=== PATIENT | female | born 1950 | race Caucasian/White ===

== ENCOUNTER 2021-11-09 14:56 | Emergency (ER) | payer MEDICARE ==
--- NOTE | 2021-11-09 15:28 | XRAY Report ---
PROCEDURE: Chest 1 View X-Ray INDICATIONS: Chest Pain TECHNIQUE: One view of the chest was acquired. COMPARISON: None FINDINGS: Surgical changes and devices: None. Lungs and pleura: No pleural effusions or pneumothorax. Lungs are clear. Mediastinum: Mediastinal contours appear normal. Heart size is normal. Bones and chest wall: No suspicious bony lesions. Overlying soft tissues appear unremarkable. IMPRESSION: No acute pulmonary process. Reviewed by: Pamela Espinoza MD on 11/09/2021 3:27 PM PDT Approved by: Pamela Espinoza MD on 11/09/2021 3:27 PM PDT Station ID: [id number]
--- NOTE | 2021-11-09 15:33 | ED Physician Documentation ---
History of Present Illness - Stated complaint Stated Complaint: CHEST PX - Chief complaint Chief Complaint: Cardiac - History obtained from History obtained from: Patient - History of Present Illness Timing: How many weeks ago (3-4) Pain level max: 3 Pain level now: 3 - Additonal information Additional information: 71-year-old female presents the emergency department complaining of upper chest pain ongoing for the past 3 weeks. She states sometimes it is in the left chest sometimes in the right chest sometimes in the right shoulder and sometimes in the center of the chest. Occasionally she will also feel a slight amount of pain in between her shoulder blades in her back. There is no change with inspir ation or exertion. She states it is more painful to palpation. Does not recall any trauma. She is visiting from [place]. No breathing difficulties. Patient denies any cardiac history. Review of Systems Constitutional: denies: Fever, Chills Nose: denies: Rhinorrhea / runny nose, Congestion Cardiac: denies: Palpitations Respiratory: denies: Dyspnea, Cough GI: denies: Abdominal Pain, Nausea, Vomiting, Diarrhea Skin: denies: Rash Musculoskeletal: denies: Neck pain, Back pain Neurologic: denies: Headache PD PAST MEDICAL HISTORY - Past Medical History Past Medical History: No - Present Medications Home Medications: Ambulatory Orders Medication Instructions Recorded Confirmed Aspirin EC [Ecotrin] 81 mg PO DAILY #30 tablet 11/09/21 Meloxicam [Mobic] 7.5 mg PO BID PRN #20 tablet 11/09/21 - Allergies Allergies/Adverse Reactions: Allergies Allergy/AdvReac Type Severity Reaction Status Date / Time No Known Drug Allergies Allergy Verified 11/09/21 15:07 - Living Situation Living Arrangement: reports: At home - Social History Does the pt smoke?: No Does the pt drink ETOH?: No Does the pt have substance abuse?: No - Family History Family history: reports: Non contributory PD ED PE NORMAL - Vitals Vital signs reviewed: Yes - General General: Alert and oriented X 3, No acute distress, Well developed/nourished - HEENT HEENT: PERRL, Moist mucous membranes - Neck Neck: Supple, no meningeal sign, No bony TTP, No adenopathy, Thyroid normal, No JVD, No bruit - Cardiac Cardiac: RRR, No murmur, Strong equal pulses (Equal pulses in all 4 extremities.) - Respiratory Respiratory: No respiratory distress, Clear bilaterally, Other (Tender palpation across the anterior chest wall. 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, No motor deficit, No sensory deficit, Normal speech - Psych Psych: Normal mood, Normal affect Results - Vitals Vitals: Vital Signs - 24 hr 11/09/21 11/09/21 11/09/21 15:02 15:37 16:00 Temperature 36.6 C Heart Rate 82 75 63 Respiratory 16 14 15 Rate Blood Pressure 137/57 H 140/80 H O2 Saturation 98 96 98 Oxygen O2 Source Room air - EKG (time done) 1500 Rate: Rate (enter#) (72) Rhythm: NSR [place]: Normal Intervals: Normal SC QRS: Normal Ischemia: ST depression (minimal II, III, aVF) - Labs Labs: Laboratory Tests 11/09/21 11/09/21 11/09/21 15:25 15:25 15:25 WBC 6.8 RBC 4.35 Hgb 13.5 Hct 40.1 MCV 92.2 MCH 31.0 MCHC 33.7 RDW 12.4 Plt Count 237 MPV 11.4 H Neut # (Auto) 3.8 Lymph # (Auto) 2.2 [place] # (Auto) 0.6 Eos # (Auto) 0.2 Baso # (Auto) 0.1 Absolute Nucleated RBC 0.00 Nucleated RBC % 0.0 Sodium 137 Potassium 4.3 Chloride 102 Carbon Dioxide 26 Anion Gap 9.0 BUN 17 Creatinine 0.8 Estimated GFR (MDRD) 71 L Glucose 117 H Calcium 9.9 Total Bilirubin 0.8 AST 21 ALT 19 Alkaline Phosphatase 67 Troponin I High Sens 4.2 Total Protein 6.7 Albumin 4.6 Globulin 2.1 Albumin/Globulin Ratio 2.2 Lipase 41 - Rads (name of study) Chest x-ray Radiology: Final report received, EMP read contemporaneously, See rad report (No acute abnormality) PD MEDICAL DECISION MAKING - ED course Complexity details: reviewed results, re-evaluated patient, considered differential (No ST elevation MO, no aortic dissection, no PE, no tension pneumothorax, no aortic aneurysm), d/w patient ED course: Patient is well-appearing, nontoxic. Afebrile. No hypoxia. No respiratory distress. The pain appears most consistent with musculoskeletal pain. No change with exertion, inspiration. No recent illnesses. No cough. Feels better after Toradol. We will place on an aspirin daily and have her follow-up with her doctor for further care including a cardiac stress test that she has never had one. No evidence of pulmonary embolus. Patient counseled regarding signs and symptoms for which I believe and urgent re-evaluation would be necessary. Patient with good understanding of and agreement to plan and is comfortable going home at this time This document was made in part using voice recognition software. While efforts are made to proofread this document, sound alike and grammatical errors may occur. Departure - Departure Disposition: 01 Home, Self Care Clinical Impression: Atypical chest pain Condition: Good Instructions: ED Chest Pain Atypical Unkn Cause Follow-Up: [facility] [Provider Group] [facility] [Provider Group] [facility] [Provider Group] [facility] [Provider Group] Prescriptions: Aspirin EC [Ecotrin] 81 mg PO DAILY #30 tablet Meloxicam [Mobic] 7.5 mg PO BID PRN #20 tablet PRN Reason: Pain Comments: The cause of your symptoms is unclear today. Please follow-up with your doctor for further care. It is recommended that you have a cardiac stress test. You should also see a primary care provider for routine blood work such as cholesterol levels and routine health screening. You can self refer for a mammogram with the radiology department here. Your prescriptions were sent to the [facility] pharmacy. We are going to start you on a daily aspirin as well.
[2021-11-09 15:35] LABS: BASOPHILS # (AUTO) 0.1 10^3/uL (0.0-0.1); BASOPHILS % (AUTO) 0.7 %; EOSINOPHILS # (AUTO) 0.2 10^3/uL (0.0-0.7); EOSINOPHILS % (AUTO) 2.5 %; HCT - HEMATOCRIT 40.1 % (37.0-47.0); HGB - HEMOGLOBIN 13.5 g/dL (12.0-16.0); LYMPHOCYTES # (AUTO) 2.2 10^3/uL (1.5-3.5); LYMPHOCYTES % (AUTO) 32.1 %; MEAN CORPUSCULAR HGB CONC 33.7 g/dL (32.0-36.0); MEAN CORPUSCULAR VOLUME 92.2 fL (81.0-99.0); MEAN PLATELET VOLUME 11.4 fL (7.9-10.8); MONOCYTES # (AUTO) 0.6 10^3/uL (0.0-1.0); MONOCYTES % (AUTO) 8.3 %; NEUTROPHILS # (AUTO) 3.8 10^3/uL (1.5-6.6); NEUTROPHILS % (AUTO) 56.3 %; PLT - PLATELET COUNT 237 10^3/uL (130-450); RED BLOOD COUNT 4.35 10^6/uL (4.20-5.40); RED CELL DISTRIBUTION WIDTH 12.4 % (12.0-15.0); WHITE BLOOD COUNT 6.8 x10^3/uL (4.8-10.8)
[2021-11-09 15:48] LABS: ALBUMIN 4.6 g/dL (3.2-5.5); ALBUMIN/GLOBULIN RATIO 2.2 (1.0-2.2); BILIRUBIN,TOTAL 0.8 mg/dL (0.2-1.0); CALCIUM 9.9 mg/dL (8.5-10.3); CREATININE 0.8 mg/dL (0.4-1.0); POTASSIUM 4.3 mmol/L (3.5-5.0); TOTAL PROTEIN 6.7 g/dL (6.7-8.2)
[2021-11-09] MEDS ORDERED: KETOROLAC 30 MG/ML VIAL IVP STA (15:53)
[2021-11-09 16:34] VITALS: BP 140/82
== END 2021-11-09 16:34 | disposition home or self-care (01) ==
LOC: ED 14:56
DX: R07.89 Other chest pain (principal)
CPT/HCPCS: 36415; 80053; 83690; 84484; 85025; 93005; 96374; 99284

== ENCOUNTER 2021-11-10 13:56 | Outpatient (CLI) | payer MEDICARE ==
--- NOTE | 2021-11-12 11:29 | Mammography Report ---
BILATERAL DIGITAL SCREENING MAMMOGRAM 3D/2D WITH AUGMENTATION: 11/10/2021 CLINICAL: Routine screening. Baseline exam. No prior exams were available for comparison. Both breasts are heterogeneously dense, which may obscure small masses (category c / 51-75% glandula r tissue). Bilateral breast implants are present. There is a benign calcification in both breasts. No significant masses, calcifications, or other findings are seen in either breast. IMPRESSION: BENIGN There is no mammographic evidence of malignancy. A 1 year screening mammogram is recommended. Based on the Tyrer Cuzick model (a risk assessment model) the patients lifetime risk is 6.6% and her 10 year risk is 4.9%. According to the ACR, ACS, and NCCN guidelines, an annual breast MRI exam pankaj g with mammogram is recommended if the patients lifetime risk is 20% or greater. This exam was interpreted at Station ID: [id number]. NOTE: For mammograms, a report in lay terms will be sent to the patient. Approximately 15% of breast malignancies will not be visualized mammographically. In the management of a palpable breast mass, a negative mammogram must not discourage biopsy of a clinically suspicious lesion. Electronically Signed By: Eileen brown/roberto:11/11/2021 11:17:02 ACR BI-RADS Category 2: Benign Finding(s) 3342F PARENCHYMAL PATTERN: (D) - The breast(s) demonstrate(s) heterogeneously dense fibroglandular parpaytony ma. BI-RADS CATEGORY: (2) - 2 RECOMMENDATION: (ANNUAL) - Recommend routine annual screening mammography. [id number] 1 year screening LATERALITY: (B)
== END 2021-11-10 13:57 | disposition home or self-care (01) ==
LOC: DI 13:56
DX: Z12.31 Encounter for screening mammogram for malignant neoplasm of breast (principal)